=== PATIENT | male | born 1950 | race Caucasian/White ===

== ENCOUNTER 2019-01-21 08:14 | Outpatient (CLI) | payer MEDICARE ==
--- NOTE | 2019-01-21 11:34 | MRI ---
MRI LUMBAR SPINE WITHOUT CONTRAST: HISTORY: Spondylosis. Low back pain radiating down to the left hip and thigh. FINDINGS: Vertebral body heights and marrow signal are maintained. Disk desiccation is seen at multiple level s in the lower lumbar spine. Conus medullaris ends at the L1 level. There are mild broad-based disk bulges most prominent at L4-5 and L5-S1 levels. There are foci of in creased T2 signal in the posterior central aspects of the L4-5 and L5-S1 disks consistent with annula r tears. There are facet hypertrophic changes at L3-4, L4-L5, and L5-S1 levels. Ligamentum flavum hypertrophy is most prominent at L3-L4 level. There is mild left-sided neural foraminal stenosis at L4-L5 and L 5-S1 levels. The paraspinal musculature is normal. Incidental note is made of a left renal cyst. IMPRESSION: 1. Lumbar spondylosis. 2. 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 POS: OFF
== END 2019-01-21 08:15 | disposition home or self-care (01) ==
LOC: SCSMRI 08:14
PROVIDERS: ATTEND Internal Medicine Rheumatology
DX: M47.27 Other spondylosis with radiculopathy, lumbosacral region (principal); M47.26 Other spondylosis with radiculopathy, lumbar region; M48.8X6 Other specified spondylopathies, lumbar region; M48.8X7 Other specified spondylopathies, lumbosacral region
CPT/HCPCS: 72148

== ENCOUNTER 2020-06-27 19:30 | Outpatient (CLI) | payer MEDICARE | END 2020-06-27 19:31 | disposition home or self-care (01) | LOC: SLEEPLAB 19:30 | PROVIDERS: ATTEND Family Medicine | DX: G47.33 Obstructive sleep apnea (adult) (pediatric) (principal); R53.83 Other fatigue; R06.83 Snoring; G47.31 Primary central sleep apnea | CPT/HCPCS: 95811 ==

== ENCOUNTER 2024-08-12 12:00 | Inpatient (IN) | payer MEDICARE ==
[2024-08-12 13:06] LABS: RBC Distribution Width 14.6 % (11.5-14.5)
[2024-08-12 13:25] LABS: Anion Gap 15 mmol/L (10-20); BUN (Urea Nitrogen) 16 mg/dL (8.4-25.7); Calc. Creatinine Clearance 0 mL/min (70-130); Calcium 9.2 mg/dL (7.8-10.44); Carbon Dioxide 24 mmol/L (23-31); Chloride 105 mmol/L (98-107); Estimated GFR 85; Glucose 112 mg/dL (83-110); Potassium 4.1 mmol/L (3.5-5.1); Sodium 140 mmol/L (136-145)
[2024-08-12 13:28] LABS: #Basophils 0.04 10x3/uL (0.0-0.2); %Basophils 0.5 % (0.0-1.0); %Eosinophils 1.8 % (0.0-10.0); %Lymphocytes 23.3 % (21.0-51.0); %Monocytes 10.5 % (0.0-10.0); %Neutrophils 63.6 % (42.0-75.0); Hematocrit 41.4 % (42.0-52.0); Hemoglobin 13.6 g/dL (14.0-18.0); Mean Corpuscular HGB CONC 32.9 g/dL (32.0-36.0); Mean Corpuscular Hemoglobin 29.2 pg (27.0-31.0); Mean Corpuscular Volume 88.8 fL (78.0-98.0); Mean Platelet Volume 10.5 fL (7.4-10.4); Platelet Count 207 10x3/uL (130-400); Red Blood Cell (RBC) Count 4.66 mill/uL (4.70-6.10)
[2024-08-12 13:28] LABS: INR-International Normal Ratio 1.1; Prothrombin Time 14.1 sec (12.0-14.7)
[2024-08-14] MEDS ORDERED: EPINEPHrine 1 MG/ML VIAL ONE (06:24)
[2024-08-14] MEDS ORDERED: PHENYLEPHRINE-NS 100 MCG/ML 10 ML SYRINGE ONE ×2 (06:24→08:46)
[2024-08-14] MEDS ORDERED: Dexamethasone 4 mg/ml Vial ONE (06:24)
[2024-08-14] MEDS ORDERED: Bupivacaine PF 0.5% 30 ML VIAL ONE (06:25)
[2024-08-14] MEDS ORDERED: Albumin 5% 500 ML ONE (06:25)
[2024-08-14] MEDS ORDERED: Lidocaine 1% MPF 2 ML VIAL ONE (06:39)
[2024-08-14] MEDS ORDERED: CEFAZOLIN 2 GM VIAL ONE (06:39)
[2024-08-14] MEDS ORDERED: Heparin 10,000 UNITS/1 ML VIAL 30,000 UNITS in Sodium Chloride 0.9% 1,000 ML FS SCH (06:45)
[2024-08-14] MEDS ORDERED: Midazolam HCl 2 mg/2 ml Vial ONE ×3 (06:53→10:32)
[2024-08-14] MEDS ORDERED: Fentanyl 250 MCG/5 ML VIAL ONE (07:05)
[2024-08-14] MEDS ORDERED: PROPOFOL 20 ML ONE (07:06)
[2024-08-14] MEDS ORDERED: Etomidate 40 MG (20 mL) VIAL ONE ×2 (07:06→07:07)
[2024-08-14] MEDS ORDERED: Papaverine 60 MG/2 ML VIAL ONE (07:37)
[2024-08-14] MEDS ORDERED: Aminocaproic Acid 5 GM/20 ML VIAL ONE (07:37)
[2024-08-14] MEDS ORDERED: Mannitol 12.5 GM/50 ML ONE (07:37)
[2024-08-14] MEDS ORDERED: Calcium Chloride 1 GM/10 ML Abboject SYRINGE ONE (07:37)
[2024-08-14] MEDS ORDERED: Rocuronium Bromide 10 MG/ML (10ML VIAL) ONE (07:37)
[2024-08-14] MEDS ORDERED: Protamine Sulfate 250 MG/25 ML VIAL ONE (07:37)
[2024-08-14] MEDS ORDERED: Heparin 30,000 units/30 ml VIAL ONE (07:37)
[2024-08-14] MEDS ORDERED: Potassium Chloride 60 mEq (30 mL) VIAL ONE (07:37)
[2024-08-14] MEDS ORDERED: Heparin 5,000 UNITS/ML VIAL ONE (07:37)
[2024-08-14] MEDS ORDERED: Vancomycin 1 GM VIAL ONE (07:37)
[2024-08-14] MEDS ORDERED: Cardioplegic Soln 1,000 ML BAG ONE (07:37)
[2024-08-14] MEDS ORDERED: Lidocaine 2% PF 100 mg/5 ml Syringe ONE (07:37)
[2024-08-14] MEDS ORDERED: Magnesium 5 GM/10 ML VIAL ONE (07:37)
[2024-08-14] MEDS ORDERED: Sodium Bicarb 50 mEq/50 ML VIAL ONE (07:37)
[2024-08-14] MEDS ORDERED: Isoflurane INH ANEST 250 ML BOTTLE ONE (08:04)
[2024-08-14] MEDS ORDERED: ePHEDrine Sulfate 50 MG/10 ML VIAL ONE ×2 (08:04→11:14)
[2024-08-14] MEDS ORDERED: Heparin 10,000 UNITS/ 10 ML VIAL ONE (08:13)
[2024-08-14] MEDS ORDERED: Glycopyrrolate 0.2 MG/ML 5 ML SYRINGE ONE (08:19)
[2024-08-14] MEDS ORDERED: fentaNYL PF 100 MCG/2 ML SYRINGE ONE (08:41)
[2024-08-14] MEDS ORDERED: NOREPINEPHRINE 8 MG/250 ML-D5W 250 ML ONE ×2 (09:39→09:40)
[2024-08-14] MEDS ORDERED: Albumin 5% 12.5 GM (250 mL) BOT IVPB PRN (11:03)
[2024-08-14] MEDS ORDERED: fentaNYL 50 mcg/mL 1 mL Vial SLOW IVP PRN ×2 (11:03)
[2024-08-14] MEDS ORDERED: Promethazine HCl 25 MG/ML VIAL IM PRN (11:03)
[2024-08-14] MEDS ORDERED: Mag-Al 1200 mg/1200 mg/30 ML UDCUP PO PRN (11:03)
[2024-08-14] MEDS ORDERED: Bisacodyl 5 MG TAB PO PRN (11:03)
[2024-08-14] MEDS ORDERED: Ipratropium/Albuterol 3 ML NEB NEB PRN (11:03)
[2024-08-14] MEDS ORDERED: Ondansetron PF 4 MG/2 ML Vial IVP PRN (11:03)
[2024-08-14] MEDS ORDERED: Bisacodyl 10 MG SUPP PR PRN (11:03)
[2024-08-14] MEDS ORDERED: Potassium Chloride 20 MEQ (100 mL) BAG IVPB PRN (11:03)
[2024-08-14] MEDS ORDERED: NOREPINEPHRINE 8 MG/250 ML-D5W 250 ML IVPB PRN (11:03)
[2024-08-14] MEDS ORDERED: hydrALAZINE 20 MG/ML VIAL SLOW IVP PRN (11:03)
[2024-08-14] MEDS ORDERED: Hetastarch 6% 500 ML 500 ML IVPB PRN (11:03)
[2024-08-14] MEDS ORDERED: Dextrose 5% in Water 1,000 ML IV PRN (11:15)
[2024-08-14] MEDS ORDERED: Dextrose 50% Abboject 50 ML SYRINGE SLOW IVP PRN (11:15)
[2024-08-14] MEDS ORDERED: Glucagon 1 MG/ML KIT SC PRN (11:15)
[2024-08-14 11:35] LABS: Actual Bicarbonate (HCO3a) 22.1 mEq/L (22-28); Base Excess (BEa) -2.7 mEq/L (-2.0 to +3.0); CO2 Tension 38.3 mmHg (35.0-45.0); Hematocrit-ABG 39 % (42.0-52.0); Hemoglobin (Hb) 13.2 g/dL (14.0-18.0); O2 Tension (PaO2), arterial 89.1 mmHg (> 70.0); pH, Arterial 7.379 (7.35-7.45)
[2024-08-14 11:36] LABS: ALV-art Gradient 290.825 mmHg (0-20); Potassium - ABG Lab 6.72 mmol/L (3.70-5.30); Puncture Site Arterial Line
[2024-08-14 11:39] LABS: #Basophils 0.05 10x3/uL (0.0-0.2); %Basophils 0.3 % (0.0-1.0); %Eosinophils 1.1 % (0.0-10.0); %Lymphocytes 16.8 % (21.0-51.0); %Monocytes 7.3 % (0.0-10.0); %Neutrophils 73.9 % (42.0-75.0); Hematocrit 36.9 % (42.0-52.0); Hemoglobin 12.3 g/dL (14.0-18.0); Mean Corpuscular HGB CONC 33.3 g/dL (32.0-36.0); Mean Corpuscular Hemoglobin 29.9 pg (27.0-31.0); Mean Corpuscular Volume 89.8 fL (78.0-98.0); Mean Platelet Volume 10.1 fL (7.4-10.4); Platelet Count 174 10x3/uL (130-400); RBC Distribution Width 14.6 % (11.5-14.5); Red Blood Cell (RBC) Count 4.11 mill/uL (4.70-6.10)
[2024-08-14] MEDS: Magnesium 2 GM/50 ML(in water) 2 GM in Premix 1 BAG IVPB SCH (11:57)
[2024-08-14] MEDS: Morphine 2 MG/ML VIAL SLOW IVP PRN (11:57)
[2024-08-14 11:58] LABS: INR-International Normal Ratio 1.3; PTT 29.5 sec (22.9-36.1); Prothrombin Time 16.2 sec (12.0-14.7)
[2024-08-14] MEDS: Ketorolac Tromethamine 30 MG (1 mL) VIAL IVP SCH (11:58)
[2024-08-14] MEDS: D5 1/2 NS w/20 mEq KCL 1,000 ML IV SCH (12:04)
[2024-08-14] MEDS: Insulin Regular, Human 100 UNIT/ML 10 ML VIAL SC PRN (12:06)
[2024-08-14] MEDS: Nitroglycerin 50 MG/250 ML BOT 250 ML IVPB PRN (12:06)
[2024-08-14 12:38] LABS: Anion Gap 13 mmol/L (10-20); BUN (Urea Nitrogen) 12 mg/dL (8.4-25.7); Calc. Creatinine Clearance 128 mL/min (70-130); Calcium 8.3 mg/dL (7.8-10.44); Carbon Dioxide 22 mmol/L (23-31); Cardiac Risk 3.6 (Less than 4.5); Chloride 108 mmol/L (98-107); Cholesterol 120 mg/dl (< 200 Desired); Estimated GFR 92; Glucose 143 mg/dL (83-110); HDL Cholesterol 33 mg/dL (>60 Neg Risk); LDL Cholesterol, Calculated 71 mg/dL; Potassium 4.4 mmol/L (3.5-5.1); Sodium 139 mmol/L (136-145); Triglycerides 78 mg/dL (Less than 150)
[2024-08-14] MEDS: Dextrose 5 %-0.45 % NaCl 1,000 ML IV SCH (12:44)
[2024-08-14 13:09] LABS: Hemoglobin A1c 5.5 % (4.0-6.0)
[2024-08-14] MEDS: CEFAZOLIN 2 GM in Sodium Chloride 0.9% 100 ML IVPB SCH (13:24)
[2024-08-14 14:45] LABS: Actual Bicarbonate (HCO3a) 22.1 mEq/L (22-28); Base Excess (BEa) -2.8 mEq/L (-2.0 to +3.0); CO2 Tension 38.7 mmHg (35.0-45.0); Calcium, Ionized (arterial) 1.11 mmol/L (1.12-1.30); Carboxyhemoglobin (COHb) 1.7 gm% (0.0-3.0); Hematocrit-ABG 41 % (42.0-52.0); Hemoglobin (Hb) 13.8 g/dL (14.0-18.0); O2 Tension (PaO2), arterial 90.3 mmHg (> 70.0); Potassium - ABG Lab 4.85 mmol/L (3.70-5.30); pH, Arterial 7.374 (7.35-7.45)
[2024-08-14 14:47] LABS: ALV-art Gradient 146.525 mmHg (0-20); Puncture Site Arterial Line
[2024-08-14] MEDS: Albumin 5% 12.5 GM (250 mL) BOT IVPB PRN (16:54)
[2024-08-14 18:30] LABS: Hematocrit 38.1 % (42.0-52.0); Hemoglobin 12.9 g/dL (14.0-18.0)
[2024-08-14 18:49] LABS: Potassium 4.5 mmol/L (3.5-5.1)
[2024-08-14] MEDS: Acetaminophen 325 MG TAB PO PRN (19:48)
[2024-08-14] MEDS: Atorvastatin Calcium 20 MG TAB PO SCH (20:52)
[2024-08-14] MEDS: Famotidine/PF 20 mg/2ml Vial SLOW IVP SCH (20:52)
[2024-08-15] MEDS: Guaifenesin DM 100-10/5 ML UDCUP PO PRN ×2 (02:09→23:53)
[2024-08-15 04:25] LABS: #Basophils 0.04 10x3/uL (0.0-0.2); #Eosinophils Less than 0.03 10x3/uL (0.0-0.7); %Basophils 0.3 % (0.0-1.0); %Eosinophils 0.1 % (0.0-10.0); %Lymphocytes 13.5 % (21.0-51.0); %Monocytes 12.2 % (0.0-10.0); %Neutrophils 73.6 % (42.0-75.0); Hematocrit 34.6 % (42.0-52.0); Hemoglobin 11.3 g/dL (14.0-18.0); Mean Corpuscular HGB CONC 32.7 g/dL (32.0-36.0); Mean Corpuscular Hemoglobin 29.5 pg (27.0-31.0); Mean Corpuscular Volume 90.3 fL (78.0-98.0); Mean Platelet Volume 10.5 fL (7.4-10.4); Platelet Count 158 10x3/uL (130-400); RBC Distribution Width 15.1 % (11.5-14.5); Red Blood Cell (RBC) Count 3.83 mill/uL (4.70-6.10)
[2024-08-15] MEDS: traMADol HCl 50 MG TAB PO PRN (04:39)
[2024-08-15 04:43] LABS: Anion Gap 14 mmol/L (10-20); BUN (Urea Nitrogen) 16 mg/dL (8.4-25.7); Calc. Creatinine Clearance 111 mL/min (70-130); Calcium 8.3 mg/dL (7.8-10.44); Carbon Dioxide 21 mmol/L (23-31); Chloride 107 mmol/L (98-107); Estimated GFR 85; Glucose 115 mg/dL (83-110); Potassium 4.2 mmol/L (3.5-5.1); Sodium 138 mmol/L (136-145)
[2024-08-15] MEDS ORDERED: Artificial Tear Ophth Sol 15 ML BOT EA EYE PRN (07:11)
[2024-08-15] MEDS ORDERED: Mineral Oil ENEMA PR PRN (07:11)
[2024-08-15] MEDS ORDERED: Nitroglycerin 0.4 MG TAB (25 Tab Bottle) SL PRN (07:11)
[2024-08-15] MEDS ORDERED: Milk Of Magnesia 30 ML UDCUP PO PRN (07:11)
[2024-08-15] MEDS ORDERED: Aspirin 325 mg Enteric Coated Tablet PO SCH (09:00)
[2024-08-15] MEDS: Magnesium 2 GM/50 ML(in water) 2 GM in Premix 1 BAG IVPB SCH (09:40)
[2024-08-15] MEDS: Aspirin 325 MG TAB PO SCH (09:40)
[2024-08-15] MEDS: Furosemide 40 MG TAB PO SCH (09:40)
[2024-08-15] MEDS: Pantoprazole 40 MG DR.TAB PO SCH (09:40)
[2024-08-15] MEDS: Potassium Chloride 10 MEQ TAB PO SCH (09:40)
[2024-08-15] MEDS ORDERED: Insulin Glargine 30 UNITS/0.3 ML VIAL SC PRN (11:08)
[2024-08-15] MEDS: diphenhydrAMINE 25 MG CAP PO PRN (23:54)
[2024-08-16] MEDS: Metoprolol Tartrate 50 MG TAB PO SCH (09:50)
[2024-08-16] MEDS: Tamsulosin HCl 0.4 MG CAP PO SCH (14:41)
[2024-08-16] MEDS: guaiFENesin/DM ER PO SCH (21:08)
[2024-08-17] MEDS: Tamsulosin HCl 0.4 MG CAP PO SCH (09:15)
[2024-08-17] MEDS: Lactulose 20 GM (30 mL) UDCUP PO SCH (13:55)
[2024-08-17 15:55] VITALS: BMI 36.5
[2024-08-18] MEDS: traMADol HCl 50 MG TAB PO PRN (20:45)
[2024-08-19 10:58] VITALS: BP 148/79; TEMP 98.6
== END 2024-08-19 10:30 | disposition home or self-care (01) | DRG 236 ==
LOC: SURG A 08-14 06:03 → CCU 08-14 11:20 → EDSTATUS 08-14 12:00 → PCU 08-15 08:30
PROVIDERS: ADMIT Thoracic Surgery (Cardiothoracic Vascular Surgery); ATTEND Thoracic Surgery (Cardiothoracic Vascular Surgery)
PROC: 02100Z9 Bypass Coronary Artery, One Artery from Left Internal Mammary, Open Approach (ICD-10-PCS; principal; 2024-08-14)
PROC: 021009W Bypass Coronary Artery, One Artery from Aorta with Autologous Venous Tissue, Open Approach (ICD-10-PCS; 2024-08-14)
PROC: 06BQ4ZZ Excision of Left Saphenous Vein, Percutaneous Endoscopic Approach (ICD-10-PCS; 2024-08-14)
PROC: 5A1221Z Performance of Cardiac Output, Continuous (ICD-10-PCS; 2024-08-14)
PROC: 3E080GC Introduction of Other Therapeutic Substance into Heart, Open Approach (ICD-10-PCS; 2024-08-14)
PROC: 3E033XZ Introduction of Vasopressor into Peripheral Vein, Percutaneous Approach (ICD-10-PCS; 2024-08-14)
PROC: 30233J1 Transfusion of Nonautologous Serum Albumin into Peripheral Vein, Percutaneous Approach (ICD-10-PCS; 2024-08-14)
DX: I25.10 Atherosclerotic heart disease of native coronary artery without angina pectoris (principal); I48.0 Paroxysmal atrial fibrillation; E78.5 Hyperlipidemia, unspecified; E66.9 Obesity, unspecified; I10 Essential (primary) hypertension; Z68.36 Body mass index [BMI] 36.0-36.9, adult; Z01.818 Encounter for other preprocedural examination
CPT/HCPCS: 36415; 36416; 36430; 71045; 71046; 80048; 80061; 82805; 83036; 85025; 85610; 85730; 86850; 86900; 86901; 93005; 93010; 93798; 94002; 94150; 97139; A4311; A4648; C1751; C1889; J0171; J0665; J1100; J1642; J1644; J1815; J1885; J2003; J2150; J2250; J2272; J2440; J2704; J2720; J3010; J3370; J3475; J3480; J3490; J7042; P9045; S0017